=== PATIENT | female | born 1960 | race Caucasian/White ===

== ENCOUNTER 2018-01-17 23:27 | Inpatient (IN) ==
[2018-01-17] MEDS ORDERED: Sod Chloride 0.9% Inj 1,000 ML IV.SIG ONE (23:50)
[2018-01-17] MEDS ORDERED: Morphine Inj 4 MG/ML Vial IV.PUSH ONE (23:50)
[2018-01-18 00:36] LABS: Baso # (Auto) 0.1 th/mm3 (0.0-0.2); Baso % (Auto) 1.7 % (0.0-2.0); Eos # (Auto) 0.2 th/mm3 (0.0-0.4); Eos % (Auto) 3.6 % (0.0-4.0); Hematocrit 40.7 % (35.0-46.0); Lymph # (Auto) 2.2 th/mm3 (1.0-4.8); Lymph % (Auto) 35.4 % (9.0-44.0); Mean Corpuscular HGB Conc 34.5 % (32.0-36.0); Mean Corpuscular Volume 86.9 fL (80.0-100.0); Mean Platelet Volume 8.2 fL (7.0-11.0); Mono # (Auto) 0.5 th/mm3 (0.0-0.9); Mono % (Auto) 7.9 % (0.0-8.0); Neut # (Auto) 3.3 th/mm3 (1.8-7.7); Neut % (Auto) 51.4 % (16.0-70.0); Platelet Count 254 th/mm3 (150-450); Red Blood Count 4.68 mil/mm3 (4.00-5.30); Red Cell Distribution Width 13.1 % (11.6-17.2); White Blood Count 6.3 th/mm3 (4.0-11.0)
--- NOTE | 2018-01-18 00:48 | CT ---
EXAM DATE: 01/18/2018 12:30 AM EDT AGE/SEX: 57 years / Female INDICATIONS: Abdominal pain. Hematuria. CLINICAL DATA: This is the patient's initial encounter. Patient reports that signs and symptoms have been present for 1 day and indicates a pain score of 5/10. MEDICAL/SURGICAL HISTORY: . Kidney stones. section. Lithotripsy. RADIATION DOSE: 31.55 CTDI (mGy) COMPARISON: [facility], CT ABDOMEN & PELVIS W/O CONTRAST, 10/21/2016. . TECHNIQUE: Multiple contiguous axial images were obtained through the abdomen. Images were obtained using multiple row detector helical technique. Using automated exposure control and adjustment of the mA and/or kV according to patient size, radiation dose was kept as low as reasonably achievable to o btain optimal diagnostic quality images. DICOM format image data is available electronically for rev iew and comparison. FINDINGS: There are stones in the bilateral renal pelves that measures 17 x 24 x 19 mm on the right and 14 x 25 x 16 mm on the left. These are not new but there is now mild to moderate bilateral hydronephrosis. T here is also induration and edema around both renal pelves. Numerous scattered nonobstructing stones measuring up to 11 mm in size are seen of both kidneys as well. No ureteral stones are seen. The urin bony bladder is within normal limits. No change 3.9 cm benign-appearing cyst lower pole of the left ki dney. Liver measures 20 cm craniocaudal and is mild fatty infiltrated. Noncontrast appearance of the spleen , pancreas and adrenal glands within normal limits. No obstruction or acute inflammatory changes are seen of the gastrointestinal tract. Diverticulum of the gastric fundus again seen. No free fluid or free air. No lymphadenopathy. Numerous small stones again seen in the gallbladder. No duct stone or ductal dilatation. CONCLUSION: 1. Large bilateral renal pelvis stones causing mild to moderate obstruction and urothelial irritatio n. There are numerous scattered nonobstructing stones of both kidneys as well measuring up to 11 mm i n size. 2. Enlarged and fatty infiltrated liver. 3. Cholelithiasis without evidence of cholecystitis or biliary obstruction. 4. Stable diverticulum of the gastric fundus. Electronically signed by: Khalif Ordoñez MD 01/18/2018 12:47 AM EDT
[2018-01-18 01:10] LABS: Alkaline Phosphatase 68 U/L (45-117); Total Protein 6.7 g/dL (6.4-8.2)
[2018-01-18 01:15] LABS: Alanine Aminotransferase 30 U/L (10-53); Albumin 2.8 g/dL (3.4-5.0); Anion Gap 8 meq/L (5-15); Aspartate Aminotransferase 24 U/L (15-37); Blood Urea Nitrogen 19 mg/dL (7-18); Calcium 8.3 mg/dL (8.5-10.1); Carbon Dioxide 29.3 meq/L (21.0-32.0); Chloride 107 meq/L (98-107); Glomerular Filtration Rate 66 mL/min (>89); Glucose,Random 171 mg/dL (74-106); Lipase 601 U/L (73-393); Sodium 144 meq/L (136-145)
[2018-01-18 01:16] LABS: Potassium 3.7 meq/L (3.5-5.1)
[2018-01-18 01:22] LABS: Bacteria,Urine Rare /hpf; Bilirubin,Urine Negative (Negative); Clarity,Urine Cloudy (Clear); Glucose,Urine (UA) Negative (Negative); Hyaline Casts,Urine 9 /lpf (0-3); Leukocyte Esterase,Urine Moderate (Negative); Mucus,Urine Many /lpf (Occasional); Nitrite,Urine Positive (Negative); Specific Gravity,Urine 1.015 (1.002-1.035); Squamous Epithelial Cell,Urine 1 /hpf (0-5); Urobilinogen,Urine 4 or Greater mg/dL (Less than 2)
[2018-01-18 01:23] LABS: Color,Urine Orange (Yellw/Straw)
[2018-01-18] MEDS ORDERED: Labetalol HCl Inj 100 MG/20 ML Vial IV.PUSH ONE (02:50)
--- NOTE | 2018-01-18 02:54 | ED ---
HPI General Chief complaint: Abdominal Pain Stated complaint: Poss kidney stone Time Seen by Provider: 01/17/18 23:38 Source: patient Mode of arrival: ambulatory Limitations: no limitations History of Present Illness HPI narrative: Patient is a 57-year-old female who comes in complaining of right flank pain with dysuria and hematuria. She has been having issues with kidney stones for the past 2 years. She says that for the past couple of weeks , she has had increased pain, and dysuria. She has been taking ibuprofen to help with her symptoms. However, she says that this morning the pain became more severe and she had to come in. She has had some nausea, but no vomiting. She denies fever chills. Severity is mild to moderate. Related Data Allergies Allergy/AdvReac Type Severity Reaction Status Date / Time levofloxacin Allergy Intermediate Itching Unverified 01/03/17 13:13 meperidine Allergy Intermediate Nausea/Vomi Unverified 01/03/17 13:13 ting ETHER Allergy Severe Shortness Uncoded 07/31/15 13:21 of Breath Review of Systems ROS: all other systems reviewed are negative Constitutional Denies chills and Denies fever(s) ENT Denies dizziness Cardiovascular Denies chest pain Respiratory Denies cough and Denies dyspnea Gastrointestinal Reports abdominal pain, Reports nausea and Denies vomiting Genitourinary Reports dysuria and Reports flank pain Musculoskeletal Denies myalgias and Denies arthralgias Integumentary/Breasts Denies lesions and Denies rash Neurologic Denies focal weakness and Denies numbness PMFSH Medical History Medical History History of kidney stones (Acute) Hx of hysterectomy (Acute) Surgical History Surgical History Hx of abdominal surgery (Acute) Hx of section (Acute) Family History Family History Mother CAD (coronary artery disease) Brother Brain cancer Social History Social History Substance History: No History of Abuse Smoking Status: Never smoker How Often Do You Have a Drink Containing Alcohol: Monthly or less Recent Travel in [facility] within the Last 8 Weeks: No Recent Out of Country Travel within the Last 8 Weeks: No Immunization History Tetanus Immunization: <5 Years Hx Influenza Vaccine This Season: No Exam Narrative Exam Narrative: GENERAL: Awake and alert, no acute distress. SKIN: Focused skin assessment warm/dry. No wounds or signs of infection. HEAD: Atraumatic. Normocephalic. EYES: Pupils equal and round. No scleral icterus. ENT: Mucous membranes pink and moist. NECK: Trachea midline. No JVD. CARDIOVASCULAR: Regular rate and rhythm. No murmur appreciated. RESPIRATORY: No accessory muscle use. Clear to auscultation. Breath sounds equal bilaterally. GASTROINTESTINAL: Abdomen soft, nondistended. Right CVA tenderness. Tender to palpation the right side of the abdomen. No rebound or guarding. MUSCULOSKELETAL: No obvious deformities. No clubbing. No cyanosis. No edema. NEUROLOGICAL: Awake and alert. No obvious cranial nerve deficits. Motor grossly within normal limits. Normal speech. PSYCHIATRIC: Appropriate mood and affect; insight and judgment normal. Course Initial Documented Vital Signs Temperature 97.7 F 01/17/18 23:28 Pulse Rate 78 01/17/18 23:28 Respiratory Rate 18 01/17/18 23:28 Blood Pressure 229/122 H 01/17/18 23:28 Pulse Oximetry 97 01/17/18 23:28 Last Documented Vital Signs Temperature 97.7 F 01/17/18 23:28 Pulse Rate 70 01/18/18 04:07 Respiratory Rate 15 01/18/18 04:07 Blood Pressure 184/84 H 01/18/18 04:07 Pulse Oximetry 94 L 01/18/18 04:07 Medical Decision Making [facility] Narrative Medical decision making narrative: Patient is a 57-year-old female comes in complaining of flank pain with dysuria. Exam shows right CVA tenderness. IV established, labs sent. Urinalysis is positive for UTI. CT of the abdomen and pelvis is concerning for evidence of pyelonephritis with the renal stone present. Patient given IV fluids, pain medicine. Given a dose of Rocephin. Admitted for further management. Medical Screen Exam Complete: Yes Emergency Medical Condition: Yes Differential Diagnosis Differential Diagnosis: UTI versus pyelonephritis versus dehydration Medical Records Medical records reviewed: Yes I reviewed the patient's medical records. Lab Data Lab results reviewed: Yes I reviewed the patient's lab results. Result diagrams: 01/18/18 00:05 01/17/18 00:38 Lab Results 01/17/18 01/18/18 01/18/18 Range/Units 00:38 00:05 00:52 WBC 6.3 (4.0-11.0) th/mm3 RBC 4.68 (4.00-5.30) mil/mm3 Hgb 14.0 (11.6-15.3) gm/dL Hct 40.7 (35.0-46.0) % MCV 86.9 (80.0-100.0) fL MCH 30.0 (27.0-34.0) pg MCHC 34.5 (32.0-36.0) % RDW 13.1 (11.6-17.2) % Plt Count 254 (150-450) th/mm3 MPV 8.2 (7.0-11.0) fL Neut % (Auto) 51.4 (16.0-70.0) % Lymph % (Auto) 35.4 (9.0-44.0) % [place] % (Auto) 7.9 (0.0-8.0) % Eos % (Auto) 3.6 (0.0-4.0) % Baso % (Auto) 1.7 (0.0-2.0) % Neut # (Auto) 3.3 (1.8-7.7) th/mm3 Lymph # (Auto) 2.2 (1.0-4.8) th/mm3 [place] # (Auto) 0.5 (0.0-0.9) th/mm3 Eos # (Auto) 0.2 (0.0-0.4) th/mm3 Baso # (Auto) 0.1 (0.0-0.2) th/mm3 WBC Differential . Differential Comment Auto diff final Sodium 144 (136-145) meq/L Potassium 3.7 (3.5-5.1) meq/L Chloride 107 (98-107) meq/L Carbon Dioxide 29.3 (21.0-32.0) meq/L Anion Gap 8 (5-15) meq/L BUN 19 H (7-18) mg/dL Creatinine 0.89 (0.50-1.00) mg/dL Estimated GFR 66 L (>89) mL/min Random Glucose 171 H (74-106) mg/dL Calcium 8.3 L (8.5-10.1) mg/dL Total Bilirubin 0.2 (0.2-1.0) mg/dL AST 24 (15-37) U/L ALT 30 (10-53) U/L Alkaline Phosphatase 68 (45-117) U/L Total Protein 6.7 (6.4-8.2) g/dL Albumin 2.8 L (3.4-5.0) g/dL Lipase 601 H (73-393) U/L Urine Color [place] H (Yellw/Straw) Urine Clarity Cloudy H (Clear) Urine pH 6.0 (5.0-8.5) Ur Specific [place] 1.015 (1.002-1.035) Urine Protein 100 H (Neg-Trace) mg/dL Urine Glucose (UA) Negative (Negative) mg/dL Urine Ketones Negative (Negative) mg/dL Urine Occult Blood Large H (Negative) Urine Nitrate Positive H (Negative) Urine Bilirubin Negative (Negative) Urine Urobilinogen 4 or greater (Less than 2) mg/dL Ur Leukocyte Esterase Moderate H (Negative) Urine RBC (0-3) /hpf Urine WBC (0-5) /hpf Urine WBC Clumps Few H (None) Ur Squamous Epith Cells 1 (0-5) /hpf Urine Bacteria Rare H (None) /hpf Hyaline Casts 9 (0-3) /lpf Urine Mucus Many H (Occasional) /lpf Micro UA Comment Culture indicated Ur Microscopic Review Not Reportable Urine Culture Comments Culture indicated Imaging Data Radiologist's impression: Abdomen/Pelvis CT 01/17/18 23:50 CONCLUSION: 1. Large bilateral renal pelvis stones causing mild to moderate obstruction and urothelial irritation. There are numerous scattered nonobstructing stones of both kidneys as well measuring up to 11 mm in size. 2. Enlarged and fatty infiltrated liver. 3. Cholelithiasis without evidence of cholecystitis or biliary obstruction. 4. Stable diverticulum of the gastric fundus. Discharge Plan Discharge Disposition Patient Disposition: 30 Still Patient Discharge Condition Condition: Stable Discharge Details Diagnosis: UTI (urinary tract infection), Renal calculi, Acute pyelonephritis Physicians Team ED Provider: Theresa Berry Primary Care Provider: Lorna Vegas Attending Provider: Irineo Pitt Other Providers: Scaglia,Conley P Discharge Interventions Interventions: Vital Signs Last Done: 01/17/18 23:56 Status ED Status: Admitted Patient
[2018-01-18] MEDS ORDERED: Bisacodyl 10 MG Supp RECTAL PRN (03:07)
[2018-01-18] MEDS ORDERED: Sod Chloride 0.9% Inj 1,000 ML IV.CONT SCH (03:15)
--- NOTE | 2018-01-18 03:49 | P.HPIM ---
History of Present Illness Primary Care Physician: Lorna Vegas MD History of Present Illness: 57-year-old female with a history of uric acid kidney stones who presents with a one-week history of initially left-sided sharp constant pain which is now progressed to right-sided sharp constant pain. Reports subjective fevers as well. Denies any chest pain shortness of breath. She denies any dysuria. Inpatient Certification: I certify that the inpatient services were ordered in accordance with Medicare regulations governing the order. This includes certification that hospital inpatient services are reasonable and necessary and in the case of services not specified as inpatient-only under 42 CFR 419.22(n), that they are appropriately provided as inpatient services in accordance to with the 2-midnight benchmark under 43 CFR 412.3(e) Estimated Total Length of Stay (Days): 3 Plans for Post Hospital Care: Home Review of Systems All other systems reviewed negative except as stated in HPI PMFSH - History History Provided By: Patient - Medical History Medical History: Medical History (Last Updated 01/17/18 @ 23:32 by Kelby Lundberg) History of kidney stones Hx of hysterectomy - Surgical History Surgical History: Surgical History (Last Updated 01/17/18 @ 23:32 by Kelby Lundberg) Hx of abdominal surgery Hx of section - Family History Family History: Family History (Last Updated 01/18/18 @ 03:47 by Irineo Pitt MD) Mother CAD (coronary artery disease) Brother Brain cancer - Tobacco History Smoking Status: Never smoker - Alcohol History How Often Do You Have a Drink Containing Alcohol: Monthly or less - Substance Use History Substance History: No History of Abuse - Travel History Recent Travel in the [place] Within the Last 8 Weeks: No Recent Travel Out of the Country Within the Last 8 Weeks: No - Immunization History Tetanus Immunization: <5 Years Hx Influenza Vaccine This Season: No Medications and Allergies Active Medications: Active Medications Al Hydroxide/Mg Hydroxide (Milk Of Magnesia Liq) 30 ml PO Q12H PRN PRN Reason: Mild Constipation Bisacodyl (Dulcolax Supp) 10 mg RECTAL DAILY PRN PRN Reason: SEVERE CONSITIPATION Clonidine HCl (Catapres) 0.1 mg PO Q6H PRN PRN Reason: SBP>160, DBP>90 Ceftriaxone Sodium 1,000 mg/ (Sodium Chloride) 100 mls @ 200 mls/hr IV.SIG Q24H JING Sodium Chloride (Ns Inj) 1,000 mls @ 100 mls/hr IV.CONT .Q10H JING Lactulose (Lactulose Liq) 30 ml PO DAILY PRN PRN Reason: SEVERE CONSITIPATION Sennosides (Senokot) 17.2 mg PO Q12H PRN PRN Reason: Moderate Constipation Sodium Chloride (Ns Flush) 2 ml IV.FLUSH PRN PRN PRN Reason: FLUSH AFTER USING IV ACCESS Last Admin: 01/18/18 02:09 Dose: 2 ml Allergies Allergy/AdvReac Type Severity Reaction Status Date / Time levofloxacin Allergy Intermediate Itching Unverified 01/03/17 13:13 meperidine Allergy Intermediate Nausea/Vomi Unverified 01/03/17 13:13 ting ETHER Allergy Severe Shortness Uncoded 07/31/15 13:21 of Breath Exam Vital signs: Vital Signs 01/17/18 23:28 01/17/18 23:56 01/18/18 03:21 Temperature 97.7 F Pulse Rate 78 73 69 Respiratory Rate 18 15 17 Blood Pressure 229/122 H 221/95 H 204/93 H Pulse Oximetry 97 96 95 Intake & Output 01/17/18 01/17/18 01/18/18 06:59 18:59 06:59 Weight 108.862 kg Narrative: GENERAL: Patient sitting in bed. Appears comfortable. Alert and oriented 3. SKIN: Warm and dry. HEAD: Atraumatic. Normocephalic. EYES: Pupils equal and round. No scleral icterus. No injection or drainage. ENT: No nasal bleeding or discharge. Mucous membranes pink and moist. NECK: Trachea midline. No JVD. CARDIOVASCULAR: Regular rate and rhythm. RESPIRATORY: No accessory muscle use. Clear to auscultation. Breath sounds equal bilaterally. GASTROINTESTINAL: Abdomen soft, non-tender, nondistended. Hepatic and splenic margins not palpable. MUSCULOSKELETAL: Extremities without clubbing, cyanosis, or edema. No obvious deformities. CVA tenderness bilaterally. NEUROLOGICAL: Awake and alert. No obvious cranial nerve deficits. Motor grossly within normal limits. Five out of 5 muscle strength in the arms and legs. Normal speech. PSYCHIATRIC: Appropriate mood and affect; insight and judgment normal. Results - Labs CBC & Chem 7: 01/18/18 00:05 01/17/18 00:38 Labs: Short CBC 01/18/18 Range/Units 00:05 WBC 6.3 (4.0-11.0) th/mm3 Hgb 14.0 (11.6-15.3) gm/dL Hct 40.7 (35.0-46.0) % Plt Count 254 (150-450) th/mm3 BMP 01/17/18 00:38 Sodium 144 Potassium 3.7 Chloride 107 Carbon Dioxide 29.3 BUN 19 H Creatinine 0.89 Calcium 8.3 L Liver Function 01/17/18 Range/Units 00:38 Total Bilirubin 0.2 (0.2-1.0) mg/dL AST 24 (15-37) U/L ALT 30 (10-53) U/L Alkaline Phosphatase 68 (45-117) U/L Albumin 2.8 L (3.4-5.0) g/dL Urine 01/18/18 Range/Units 00:52 Urine Color [place] H (Yellw/Straw) Urine Clarity Cloudy H (Clear) Urine pH 6.0 (5.0-8.5) Ur Specific [place] 1.015 (1.002-1.035) Urine Protein 100 H (Neg-Trace) mg/dL Urine Glucose (UA) Negative (Negative) mg/dL - Imaging Impressions Abdomen/Pelvis CT 01/17/18 23:50 CONCLUSION: 1. Large bilateral renal pelvis stones causing mild to moderate obstruction and urothelial irritation. There are numerous scattered nonobstructing stones of both kidneys as well measuring up to 11 mm in size. 2. Enlarged and fatty infiltrated liver. 3. Cholelithiasis without evidence of cholecystitis or biliary obstruction. 4. Stable diverticulum of the gastric fundus. Caprini VTE Risk Assessment Caprini VTE Risk Assessment: No/Low Risk (score <= 1) Caprini Risk Assessment Model: Point Value = 1 Point Value = 2 Point Value = 3 Point Value = 5 Age 41-60 Minor surgery BMI > 25 kg/m2 Swollen legs Varicose veins or History of unexplained or recurrent spontaneous Oral contraceptives or hormone replacement Sepsis (< 1 month) Serious lung disease, including pneumonia (< 1 month) Abnormal pulmonary function Acute myocardial infarction Congestive heart failure (< 1 month) History of inflammatory bowel disease Medical patient at bed rest Age 61-74 Arthroscopic surgery Major open surgery (> 45 min) Laparoscopic surgery (> 45 min) Malignancy Confined to bed (> 72 hours) Immobilizing plaster cast Central venous access Age >= 75 History of VTE Family history of VTE Factor V Leiden Prothrombin [id number] Lupus anticoagulant Anticardiolipin antibodies Elevated serum homocysteine Heparin-induced thrombocytopenia Other congenital or acquired thrombophilia Stroke (< 1 month) Elective arthroplasty Hip, pelvis, or leg fracture Acute spinal cord injury (< 1 month) Prophylaxis Regimen: Total Risk Factor Score Risk Level Prophylaxis Regimen 0-1 Low Early ambulation 2 Moderate Order ONE of the following: *Sequential Compression Device (SCD) *Heparin 5000 units SQ BID 3-4 Higher Order ONE of the following medications: *Heparin 5000 units SQ TID *Enoxaparin/Lovenox 40 mg SQ daily (WT < 150 kg, CrCl > 30 mL/min) *Enoxaparin/Lovenox 30 mg SQ daily (WT < 150 kg, CrCl > 10-29 mL/min) *Enoxaparin/Lovenox 30 mg SQ BID (WT < 150 kg, CrCl > 30 mL/min) AND/OR *Sequential Compression Device (SCD) 5 or more Highest Order ONE of the following medications: *Heparin 5000 units SQ TID (Preferred with Epidurals) *Enoxaparin/Lovenox 40 mg SQ daily (WT < 150 kg, CrCl > 30 mL/min) *Enoxaparin/Lovenox 30 mg SQ daily (WT < 150 kg, CrCl > 10-29 mL/min) *Enoxaparin/Lovenox 30 mg SQ BID (WT < 150 kg, CrCl > 30 mL/min) AND *Sequential Compression Device (SCD) Assessment and Plan - Plan //Pyelonephritis //Bilateral nephrolithiasis causing moderate obstruction as seen on CT abdomen. //UTI Started on Rocephin Consult urology. //Axillary hypertension. Systolic blood pressures in the 220s. Will start on clonidine as needed and monitor. Fatty infiltration of liver. Loss. Follow with primary care as outpatient. Discussed Condition With: Patient, nurse, ED physician.
[2018-01-18] MEDS ORDERED: Morphine Inj 4 MG/ML Vial IV.PUSH PRN (06:24)
[2018-01-18 07:28] VITALS: RESP 16
[2018-01-18 11:23] VITALS: BP 130/63; PULSE 69; TEMP 97.6; O2SAT 96
--- NOTE | 2018-01-18 12:05 | P.PNIM ---
Subjective Interval history: 57-year-old female with a history of uric acid kidney stones who presents with a one-week history of initially left-sided sharp constant pain which is now progressed to right-sided sharp constant pain. Reports subjective fevers as well. Denies any chest pain shortness of breath. She denies any dysuria. 01-18 AWAIT UROLOGY EVALUATIONS LESS PAIN CATAPRES PRN FOR BLOOD PRESSURE DVT AND GI PROPHYLAXIS Physical Exam Vital signs: Vital Signs 01/17/18 23:28 01/17/18 23:56 01/18/18 03:21 Temperature 97.7 F Pulse Rate 78 73 69 Respiratory Rate 18 15 17 Blood Pressure 229/122 H 221/95 H 204/93 H Pulse Oximetry 97 96 95 01/18/18 03:51 01/18/18 04:07 01/18/18 05:11 Temperature Pulse Rate 68 70 68 Respiratory Rate 15 15 15 Blood Pressure 192/80 H 184/84 H 178/81 H Pulse Oximetry 94 L 94 L 94 L 01/18/18 07:27 01/18/18 11:22 Temperature 98.1 F 97.6 F Pulse Rate 70 69 Respiratory Rate 16 16 Blood Pressure 142/59 H 130/63 Pulse Oximetry 94 L 96 Intake & Output 01/17/18 01/18/18 01/18/18 18:59 06:59 18:59 Intake Total 1100 / 1100 Balance 1100 / 1100 Weight 108.862 kg Intake: IV 1100 / 1100 Rocephin Inj 1,000 MG In NS Inj 100 / 100 100 ML @ 200 mls/hr IV.SIG ONCE ONE Rx#:[id number] Other: # Voids 2 Weight On Admission 108.862 kg Narrative: GENERAL: Patient sitting in bed. Appears comfortable. Alert and oriented 3. SKIN: Warm and dry. HEAD: Atraumatic. Normocephalic. EYES: Pupils equal and round. No scleral icterus. No injection or drainage. ENT: No nasal bleeding or discharge. Mucous membranes pink and moist. NECK: Trachea midline. No JVD. CARDIOVASCULAR: Regular rate and rhythm. RESPIRATORY: No accessory muscle use. Clear to auscultation. Breath sounds equal bilaterally. GASTROINTESTINAL: Abdomen soft, non-tender, nondistended. Hepatic and splenic margins not palpable. MUSCULOSKELETAL: Extremities without clubbing, cyanosis, or edema. No obvious deformities. CVA tenderness bilaterally. NEUROLOGICAL: Awake and alert. No obvious cranial nerve deficits. Motor grossly within normal limits. Five out of 5 muscle strength in the arms and legs. Normal speech. PSYCHIATRIC: Appropriate mood and affect; insight and judgment normal. Results - Labs CBC & Chem 7: 01/18/18 00:05 01/17/18 00:38 Laboratory Results - last 24 hr 01/17/18 01/18/18 01/18/18 00:38 00:05 00:52 WBC 6.3 RBC 4.68 Hgb 14.0 Hct 40.7 MCV 86.9 MCH 30.0 MCHC 34.5 RDW 13.1 Plt Count 254 MPV 8.2 Neut % (Auto) 51.4 Lymph % (Auto) 35.4 [place] % (Auto) 7.9 Eos % (Auto) 3.6 Baso % (Auto) 1.7 Neut # (Auto) 3.3 Lymph # (Auto) 2.2 [place] # (Auto) 0.5 Eos # (Auto) 0.2 Baso # (Auto) 0.1 WBC Differential . Differential Comment Auto diff final Sodium 144 Potassium 3.7 Chloride 107 Carbon Dioxide 29.3 Anion Gap 8 BUN 19 H Creatinine 0.89 Estimated GFR 66 L Random Glucose 171 H Calcium 8.3 L Total Bilirubin 0.2 AST 24 ALT 30 Alkaline Phosphatase 68 Total Protein 6.7 Albumin 2.8 L Lipase 601 H Urine Color [place] H Urine Clarity Cloudy H Urine pH 6.0 Ur Specific [place] 1.015 Urine Protein 100 H Urine Glucose (UA) Negative Urine Ketones Negative Urine Occult Blood Large H Urine Nitrate Positive H Urine Bilirubin Negative Urine Urobilinogen 4 or greater Ur Leukocyte Esterase Moderate H Urine RBC Urine WBC Urine WBC Clumps Few H Ur Squamous Epith Cells 1 Urine Bacteria Rare H Hyaline Casts 9 Urine Mucus Many H Micro UA Comment Culture indicated Ur Microscopic Review Not Reportable Urine Culture Comments Culture indicated - Imaging Impressions Abdomen/Pelvis CT 01/17/18 23:50 CONCLUSION: 1. Large bilateral renal pelvis stones causing mild to moderate obstruction and urothelial irritation. There are numerous scattered nonobstructing stones of both kidneys as well measuring up to 11 mm in size. 2. Enlarged and fatty infiltrated liver. 3. Cholelithiasis without evidence of cholecystitis or biliary obstruction. 4. Stable diverticulum of the gastric fundus. Assessment and Plan - Plan Pyelonephritis Bilateral nephrolithiasis causing moderate obstruction as seen on CT abdomen. UTI Started on Rocephin Consult urology. UNCONTROLLED hypertension. Systolic blood pressures in the 220s. Will start on clonidine as needed and monitor. Fatty infiltration of liver. Loss. Follow with primary care as outpatient. GI AND DVT PROPHYLAXIS Code Status: FULL CODE Discussed Condition With: RN AND PT AND CM Discharge Planning: PENDING UROLOGY CLEARANCE
[2018-01-18] MEDS ORDERED: Famotidine 20 MG Tablet PO SCH (12:15)
--- NOTE | 2018-01-18 12:59 | P.CONURO ---
History of Present Illness Service: Consult date: 01/18/18 Requesting Physician: Irineo Pitt Reason for Consult: Bilateral nephrolithiasis Primary Care Provider: Lorna Vegas MD Family Provider: Lorna Vegas MD History of Present Illness: 57-year-old female with long-standing history recurrent renal calculi who last underwent a urologic evaluation approximately 1 year ago by who had recommended management with a percutaneous nephrolithotomy. Patient reports that she did not have insurance and cannot afford to have the procedure performed and has just been living with her problem for the past year. She presents now with intermittent bilateral flank pain that has gradually become worse. She also reports that her kidney stones have always been uric acid in nature. I discussed that I would order a KUB study to ascertain whether the stones are consistent with uric acid and if so would recommend medical management with Urocit-K 10 mEq by mouth 4 times daily. Review of Systems All other systems reviewed negative except as stated in HPI PMFSH - History History Provided By: Patient - Medical History Medical History: Medical History (Last Reviewed 01/18/18 @ 06:08 by Ana Foss RN) History of kidney stones Hx of hysterectomy - Surgical History Surgical History: Surgical History (Last Reviewed 01/18/18 @ 06:08 by Ana Foss RN) Hx of abdominal surgery Hx of section - Family History Family History: Family History (Last Reviewed 01/18/18 @ 05:08 by Theresa Berry MD) Mother CAD (coronary artery disease) Brother Brain cancer - Tobacco History Second Hand Smoke Exposure: No Smoking Status: Never smoker - Alcohol History How Often Do You Have a Drink Containing Alcohol: Never - Substance Use History Substance History: No History of Abuse - Travel History Recent Travel in the [place] Within the Last 8 Weeks: No Recent Travel Out of the Country Within the Last 8 Weeks: No - Immunization History Tetanus Immunization: <5 Years Hx Influenza Vaccine This Season: No Medications and Allergies Active Medications: Active Medications Al Hydroxide/Mg Hydroxide (Milk Of Magnandriy Liq) 30 ml PO Q12H PRN PRN Reason: Mild Constipation Bisacodyl (Dulcolax Supp) 10 mg RECTAL DAILY PRN PRN Reason: SEVERE CONSITIPATION Clonidine HCl (Catapres) 0.1 mg PO Q6H PRN PRN Reason: SBP>160, DBP>90 Last Admin: 01/18/18 04:07 Dose: 0.1 mg Famotidine (Pepcid) 10 mg PO BID JING Ceftriaxone Sodium 1,000 mg/ (Sodium Chloride) 100 mls @ 200 mls/hr IV.SIG Q24H JING Sodium Chloride (Ns Inj) 1,000 mls @ 100 mls/hr IV.CONT .Q10H JING Last Admin: 01/18/18 06:00 Dose: 100 mls/hr Lactulose (Lactulose Liq) 30 ml PO DAILY PRN PRN Reason: SEVERE CONSITIPATION Morphine Sulfate (Morphine Inj) 2 mg IV.PUSH Q3H PRN PRN Reason: PAIN SCALE 1 TO 10 Last Admin: 01/18/18 06:42 Dose: 2 mg Ondansetron HCl (Zofran Inj) 4 mg IV.PUSH Q6H PRN PRN Reason: NAUSEA, VOMITING Last Admin: 01/18/18 11:31 Dose: 4 mg Sennosides (Senokot) 17.2 mg PO Q12H PRN PRN Reason: Moderate Constipation Sodium Chloride (Ns Flush) 2 ml IV.FLUSH PRN PRN PRN Reason: FLUSH AFTER USING IV ACCESS Last Admin: 01/18/18 02:09 Dose: 2 ml Allergies Allergy/AdvReac Type Severity Reaction Status Date / Time levofloxacin Allergy Intermediate Itching Verified 01/18/18 06:07 meperidine Allergy Intermediate Nausea/Vomi Verified 01/18/18 06:07 ting ETHER Allergy Severe Shortness Uncoded 01/18/18 06:07 of Breath Home Medications Medication Instructions Recorded Confirmed Type No Known Home Medications 01/18/18 01/18/18 History Physical Exam Vital Signs - 24 hr 01/17/18 23:28 01/17/18 23:56 01/18/18 03:21 Temperature 97.7 F Pulse Rate 78 73 69 Respiratory Rate 18 15 17 Blood Pressure 229/122 H 221/95 H 204/93 H Pulse Oximetry 97 96 95 01/18/18 03:51 01/18/18 04:07 01/18/18 05:11 Temperature Pulse Rate 68 70 68 Respiratory Rate 15 15 15 Blood Pressure 192/80 H 184/84 H 178/81 H Pulse Oximetry 94 L 94 L 94 L 01/18/18 07:27 01/18/18 11:22 Temperature 98.1 F 97.6 F Pulse Rate 70 69 Respiratory Rate 16 16 Blood Pressure 142/59 H 130/63 Pulse Oximetry 94 L 96 Physical Exam: GENERAL: This is a well-nourished, well-developed patient, in no apparent distress. SKIN: No rashes, ecchymoses or lesions. Cool and dry. HEAD: Atraumatic. Normocephalic. No temporal or scalp tenderness. EYES: Pupils equal round and reactive. Extraocular motions intact. No scleral icterus. No injection or drainage. ENT: Nose without bleeding, purulent drainage or septal hematoma. Throat without erythema, tonsillar hypertrophy or exudate. Uvula midline. Airway patent. NECK: Trachea midline. No JVD or lymphadenopathy. Supple, nontender, no meningeal signs. CARDIOVASCULAR: Regular rate and rhythm without murmurs, gallops, or rubs. RESPIRATORY: Clear to auscultation. Breath sounds equal bilaterally. No wheezes , rales, or rhonchi. GASTROINTESTINAL: Abdomen soft, non-tender, nondistended. No hepato-splenomegaly , or palpable masses. No guarding. GENITOURINARY: No CVA tenderness, bladder not distended MUSCULOSKELETAL: Extremities without clubbing, cyanosis, or edema. No joint tenderness, effusion, or edema noted. No calf tenderness. Negative Homans sign bilaterally. NEUROLOGICAL: Awake and alert. Cranial nerves II through XII intact. Motor and sensory grossly within normal limits. Five out of 5 muscle strength in all muscle groups. Normal speech. Laboratory Results - last 24 hr 01/17/18 01/18/18 01/18/18 00:38 00:05 00:38 WBC 6.3 RBC 4.68 Hgb 14.0 Hct 40.7 MCV 86.9 MCH 30.0 MCHC 34.5 RDW 13.1 Plt Count 254 MPV 8.2 Neut % (Auto) 51.4 Lymph % (Auto) 35.4 [place] % (Auto) 7.9 Eos % (Auto) 3.6 Baso % (Auto) 1.7 Neut # (Auto) 3.3 Lymph # (Auto) 2.2 [place] # (Auto) 0.5 Eos # (Auto) 0.2 Baso # (Auto) 0.1 WBC Differential . Differential Comment Auto diff final Sodium 144 Potassium 3.7 Chloride 107 Carbon Dioxide 29.3 Anion Gap 8 BUN 19 H Creatinine 0.89 Estimated GFR 66 L Random Glucose 171 H Calcium 8.3 L Total Bilirubin 0.2 AST 24 ALT 30 Alkaline Phosphatase 68 Total Protein 6.7 Albumin 2.8 L Lipase 601 H Free T4 1.07 Urine Color Urine Clarity Urine pH Ur Specific [place] Urine Protein Urine Glucose (UA) Urine Ketones Urine Occult Blood Urine Nitrate Urine Bilirubin Urine Urobilinogen Ur Leukocyte Esterase Urine RBC Urine WBC Urine WBC Clumps Ur Squamous Epith Cells Urine Bacteria Hyaline Casts Urine Mucus Micro UA Comment Ur Microscopic Review Urine Culture Comments 01/18/18 00:52 WBC RBC Hgb Hct MCV MCH MCHC RDW Plt Count MPV Neut % (Auto) Lymph % (Auto) [place] % (Auto) Eos % (Auto) Baso % (Auto) Neut # (Auto) Lymph # (Auto) [place] # (Auto) Eos # (Auto) Baso # (Auto) WBC Differential Differential Comment Sodium Potassium Chloride Carbon Dioxide Anion Gap BUN Creatinine Estimated GFR Random Glucose Calcium Total Bilirubin AST ALT Alkaline Phosphatase Total Protein Albumin Lipase Free T4 Urine Color [place] H Urine Clarity Cloudy H Urine pH 6.0 Ur Specific [place] 1.015 Urine Protein 100 H Urine Glucose (UA) Negative Urine Ketones Negative Urine Occult Blood Large H Urine Nitrate Positive H Urine Bilirubin Negative Urine Urobilinogen 4 or greater Ur Leukocyte Esterase Moderate H Urine RBC Urine WBC Urine WBC Clumps Few H Ur Squamous Epith Cells 1 Urine Bacteria Rare H Hyaline Casts 9 Urine Mucus Many H Micro UA Comment Culture indicated Ur Microscopic Review Not Reportable Urine Culture Comments Culture indicated Result Diagrams: 01/18/18 00:05 01/17/18 00:38 Imaging: ITS Impressions Abdomen/Pelvis CT 01/17/18 23:50 CONCLUSION: 1. Large bilateral renal pelvis stones causing mild to moderate obstruction and urothelial irritation. There are numerous scattered nonobstructing stones of both kidneys as well measuring up to 11 mm in size. 2. Enlarged and fatty infiltrated liver. 3. Cholelithiasis without evidence of cholecystitis or biliary obstruction. 4. Stable diverticulum of the gastric fundus. Assessment and Plan - Assessment (1) Renal calculi Code(s): N20.0 - Calculus of kidney Status: Acute - Plan Urologic impression: 1. Bilateral renal calculi possibly uric acid in nature 2. Urinary tract infection Recommendations: 1. KUB study today to assess if stones are likely uric acid in nature 2. Agree with antibiotic therapy 3. May discharge home when clinically stable with instructions to follow-up at my office for further management. 4. Implement medical management with Urocit-K 10 mEq by mouth 4 times daily
--- NOTE | 2018-01-18 14:32 | XR ---
EXAM DATE: 01/18/2018 2:21 PM EDT AGE/SEX: 57 years / Female INDICATIONS: Kidney stones. CLINICAL DATA: This is the patient's subsequent encounter. Patient reports that signs and symptoms h ave been present for 1 week and indicates a pain score of 2/10. MEDICAL/SURGICAL HISTORY: Renal calculi. Lithotripsy. ureteral stents COMPARISON: [facility] – [place], CT ABDOMEN & PELVIS W/O CONTRAST, 01/18/2018. . FINDINGS: The abdominal bowel gas pattern is normal. There are large bilateral staghorn calculi present. There is a staghorn calculus in the right renal pelvis measuring 2.6 x 2.4 cm. There is a staghorn calculu s in the left renal pelvis measuring 2.8 x 1.7 cm. Several smaller bilateral calculi are seen in both kidneys. This correlates with the recent CT scan. No definite calcifications are seen in the ureters . CONCLUSION: Bilateral prominent staghorn calculi are noted in both kidneys. Electronically signed by: Jacob Farmer MD 01/18/2018 2:31 PM EDT
[2018-01-18 15:36] LABS: Hemoglobin A1c 6.7 % (4.3-6.0)
--- NOTE | 2018-01-18 15:38 | P.DS ---
Date of admission: 01/18/18 02:53 Primary care physician: Lorna Vegas MD Attending physician on discharge: Isaiah Israel Anticipated date of discharge: 01/18/18 Brief History from admission: 57-year-old female with a history of uric acid kidney stones who presents with a one-week history of initially left-sided sharp constant pain which is now progressed to right-sided sharp constant pain. Reports subjective fevers as well. Denies any chest pain shortness of breath. She denies any dysuria. DS: Diagnosis - Discharge Diagnosis (1) Staghorn calculus Status: Chronic (2) UTI (urinary tract infection) Status: Acute (3) Renal calculi Status: Chronic (4) Acute pyelonephritis Status: Acute DS: Medications - Discharge Medications Prescriptions: cefuroxime axetil 500 mg PO Q12HR #28 tab hydrocodone-acetaminophen [[place]] 1 tab PO Q6H PRN #12 tab PRN Reason: Pain potassium citrate [Urocit-K 10] 10 meq PO QID #120 tab sennosides [Senna Lax] 17.2 mg PO Q12H PRN #120 tab PRN Reason: Moderate Constipation DS: Summary Hospital Course: 57-year-old female with a history of uric acid kidney stones who presents with a one-week history of initially left-sided sharp constant pain which is now progressed to right-sided sharp constant pain. Reports subjective fevers as well. Denies any chest pain shortness of breath. She denies any dysuria. 8-30 AWAIT UROLOGY EVALUATIONS LESS PAIN CATAPRES PRN FOR BLOOD PRESSURE DVT AND GI PROPHYLAXIS PATIENT CLEARED BY UROLOGY WANTS TO GO HOME WILL GIVE RX FOR ANTIBIOTICS AND Urocit-K 10MEQ QID FOLLOW UP WITH UROLOGY DC TO HOME TODAY E-FORCSE Prescription Drug Monitoring Database has been queried and verified prior to prescribing the controlled substance. Acute pain exception. This patient has normal, predicted, physiological, and time limited response to an adverse mechanical stimulus associated with surgery, trauma, or acute illness as described in my notes. There is a lack of alternative treatment options other than to include the prescribed narcotic treatment for this condition. continue on [place] FOR PAIN 5-325 #12 E-FORCSE CHECKED NO RX IN SYSTEM - Time Spent with Patient Total time spent providing and/or coordinating discharge services: Greater than 30 minutes - Quality: VTE Deep Vein Thrombosis/Pulmonary Embolism Present on Admission: No Exam Vital signs: Vital Signs 01/17/18 23:28 01/17/18 23:56 01/18/18 03:21 Temperature 97.7 F Pulse Rate 78 73 69 Respiratory Rate 18 15 17 Blood Pressure 229/122 H 221/95 H 204/93 H Pulse Oximetry 97 96 95 01/18/18 03:51 01/18/18 04:07 01/18/18 05:11 Temperature Pulse Rate 68 70 68 Respiratory Rate 15 15 15 Blood Pressure 192/80 H 184/84 H 178/81 H Pulse Oximetry 94 L 94 L 94 L 01/18/18 07:27 01/18/18 11:22 Temperature 98.1 F 97.6 F Pulse Rate 70 69 Respiratory Rate 16 16 Blood Pressure 142/59 H 130/63 Pulse Oximetry 94 L 96 Intake & Output 01/17/18 01/18/18 01/18/18 18:59 06:59 18:59 Intake Total 1100 / 1100 Balance 1100 / 1100 Weight 108.862 kg Intake: IV 1100 / 1100 Rocephin Inj 1,000 MG In NS Inj 100 / 100 100 ML @ 200 mls/hr IV.SIG ONCE ONE Rx#:[id number] Other: # Voids 2 Weight On Admission 108.862 kg Narrative: GENERAL: Patient sitting in bed. Appears comfortable. Alert and oriented 3. SKIN: Warm and dry. HEAD: Atraumatic. Normocephalic. EYES: Pupils equal and round. No scleral icterus. No injection or drainage. ENT: No nasal bleeding or discharge. Mucous membranes pink and moist. NECK: Trachea midline. No JVD. CARDIOVASCULAR: Regular rate and rhythm. RESPIRATORY: No accessory muscle use. Clear to auscultation. Breath sounds equal bilaterally. GASTROINTESTINAL: Abdomen soft, non-tender, nondistended. Hepatic and splenic margins not palpable. MUSCULOSKELETAL: Extremities without clubbing, cyanosis, or edema. No obvious deformities. CVA tenderness bilaterally. NEUROLOGICAL: Awake and alert. No obvious cranial nerve deficits. Motor grossly within normal limits. Five out of 5 muscle strength in the arms and legs. Normal speech. PSYCHIATRIC: Appropriate mood and affect; insight and judgment normal. Results Procedures completed during hospitalization: none Completed studies during hospitalization: Laboratory Results WBC 6.3 th/mm3 (4.0-11.0) 01/18/18 00:05 RBC 4.68 mil/mm3 (4.00-5.30) 01/18/18 00:05 Hgb 14.0 gm/dL (11.6-15.3) 01/18/18 00:05 Hct 40.7 % (35.0-46.0) 01/18/18 00:05 MCV 86.9 fL (80.0-100.0) 01/18/18 00:05 MCH 30.0 pg (27.0-34.0) 01/18/18 00:05 MCHC 34.5 % (32.0-36.0) 01/18/18 00:05 RDW 13.1 % (11.6-17.2) 01/18/18 00:05 Plt Count 254 th/mm3 (150-450) 01/18/18 00:05 MPV 8.2 fL (7.0-11.0) 01/18/18 00:05 Neut % (Auto) 51.4 % (16.0-70.0) 01/18/18 00:05 Lymph % (Auto) 35.4 % (9.0-44.0) 01/18/18 00:05 [place] % (Auto) 7.9 % (0.0-8.0) 01/18/18 00:05 Eos % (Auto) 3.6 % (0.0-4.0) 01/18/18 00:05 Baso % (Auto) 1.7 % (0.0-2.0) 01/18/18 00:05 Neut # (Auto) 3.3 th/mm3 (1.8-7.7) 01/18/18 00:05 Lymph # (Auto) 2.2 th/mm3 (1.0-4.8) 01/18/18 00:05 [place] # (Auto) 0.5 th/mm3 (0.0-0.9) 01/18/18 00:05 Eos # (Auto) 0.2 th/mm3 (0.0-0.4) 01/18/18 00:05 Baso # (Auto) 0.1 th/mm3 (0.0-0.2) 01/18/18 00:05 WBC Differential . 01/18/18 00:05 Differential Comment Auto diff final 01/18/18 00:05 Sodium 144 meq/L (136-145) 01/17/18 00:38 Potassium 3.7 meq/L (3.5-5.1) 01/17/18 00:38 Chloride 107 meq/L (98-107) 01/17/18 00:38 Carbon Dioxide 29.3 meq/L (21.0-32.0) 01/17/18 00:38 Anion Gap 8 meq/L (5-15) 01/17/18 00:38 BUN 19 mg/dL (7-18) H 01/17/18 00:38 Creatinine 0.89 mg/dL (0.50-1.00) 01/17/18 00:38 Estimated GFR 66 mL/min (>89) L 01/17/18 00:38 Random Glucose 171 mg/dL (74-106) H 01/17/18 00:38 Calcium 8.3 mg/dL (8.5-10.1) L 01/17/18 00:38 Total Bilirubin 0.2 mg/dL (0.2-1.0) 01/17/18 00:38 AST 24 U/L (15-37) 01/17/18 00:38 ALT 30 U/L (10-53) 01/17/18 00:38 Alkaline Phosphatase 68 U/L (45-117) 01/17/18 00:38 Total Protein 6.7 g/dL (6.4-8.2) 01/17/18 00:38 Albumin 2.8 g/dL (3.4-5.0) L 01/17/18 00:38 Lipase 601 U/L (73-393) H 01/17/18 00:38 TSH 2.720 uIU/mL (0.358-3.740) 01/18/18 00:38 Free T4 1.07 ng/dL (0.76-1.46) 01/18/18 00:38 Urine Color [place] (Yellw/Straw) H 01/18/18 00:52 Urine Clarity Cloudy (Clear) H 01/18/18 00:52 Urine pH 6.0 (5.0-8.5) 01/18/18 00:52 Ur Specific [place] 1.015 (1.002-1.035) 01/18/18 00:52 Urine Protein 100 mg/dL (Neg-Trace) H 01/18/18 00:52 Urine Glucose (UA) Negative mg/dL (Negative) 01/18/18 00:52 Urine Ketones Negative mg/dL (Negative) 01/18/18 00:52 Urine Occult Blood Large (Negative) H 01/18/18 00:52 Urine Nitrate Positive (Negative) H 01/18/18 00:52 Urine Bilirubin Negative (Negative) 01/18/18 00:52 Urine Urobilinogen 4 or greater mg/dL (Less than 2) 01/18/18 00:52 Ur Leukocyte Esterase Moderate (Negative) H 01/18/18 00:52 Urine RBC /hpf (0-3) 01/18/18 00:52 Urine WBC /hpf (0-5) 01/18/18 00:52 Urine WBC Clumps Few (None) H 01/18/18 00:52 Ur Squamous Epith Cells 1 /hpf (0-5) 01/18/18 00:52 Urine Bacteria Rare /hpf (None) H 01/18/18 00:52 Hyaline Casts 9 /lpf (0-3) 01/18/18 00:52 Urine Mucus Many /lpf (Occasional) H 01/18/18 00:52 Micro UA Comment Culture indicated 01/18/18 00:52 Ur Microscopic Review Not Reportable 01/18/18 00:52 Urine Culture Comments Culture indicated 01/18/18 00:52 Impressions Abdomen/Pelvis CT 01/17/18 23:50 CONCLUSION: 1. Large bilateral renal pelvis stones causing mild to moderate obstruction and urothelial irritation. There are numerous scattered nonobstructing stones of both kidneys as well measuring up to 11 mm in size. 2. Enlarged and fatty infiltrated liver. 3. Cholelithiasis without evidence of cholecystitis or biliary obstruction. 4. Stable diverticulum of the gastric fundus. Abdomen X-Ray 01/18/18 00:00 CONCLUSION: Bilateral prominent staghorn calculi are noted in both kidneys. Labs on day of discharge: Labs from last 24 hours 01/18/18 01/18/18 01/18/18 00:52 00:38 00:38 WBC RBC Hgb Hct MCV MCH MCHC RDW Plt Count MPV Neut % (Auto) Lymph % (Auto) [place] % (Auto) Eos % (Auto) Baso % (Auto) Neut # (Auto) Lymph # (Auto) [place] # (Auto) Eos # (Auto) Baso # (Auto) WBC Differential Differential Comment Sodium Potassium Chloride Carbon Dioxide Anion Gap BUN Creatinine Estimated GFR Random Glucose Hemoglobin A1c Calcium Total Bilirubin AST ALT Alkaline Phosphatase Total Protein Albumin Lipase TSH 2.720 Free T4 1.07 Urine Color [place] H Urine Clarity Cloudy H Urine pH 6.0 Ur Specific [place] 1.015 Urine Protein 100 H Urine Glucose (UA) Negative Urine Ketones Negative Urine Occult Blood Large H Urine Nitrate Positive H Urine Bilirubin Negative Urine Urobilinogen 4 or greater Ur Leukocyte Esterase Moderate H Urine RBC Urine WBC Urine WBC Clumps Few H Ur Squamous Epith Cells 1 Urine Bacteria Rare H Hyaline Casts 9 Urine Mucus Many H Micro UA Comment Culture indicated Ur Microscopic Review Not Reportable Urine Culture Comments Culture indicated 01/18/18 01/18/18 01/17/18 00:38 00:05 00:38 WBC 6.3 RBC 4.68 Hgb 14.0 Hct 40.7 MCV 86.9 MCH 30.0 MCHC 34.5 RDW 13.1 Plt Count 254 MPV 8.2 Neut % (Auto) 51.4 Lymph % (Auto) 35.4 [place] % (Auto) 7.9 Eos % (Auto) 3.6 Baso % (Auto) 1.7 Neut # (Auto) 3.3 Lymph # (Auto) 2.2 [place] # (Auto) 0.5 Eos # (Auto) 0.2 Baso # (Auto) 0.1 WBC Differential . Differential Comment Auto diff final Sodium 144 Potassium 3.7 Chloride 107 Carbon Dioxide 29.3 Anion Gap 8 BUN 19 H Creatinine 0.89 Estimated GFR 66 L Random Glucose 171 H Hemoglobin A1c Pending Calcium 8.3 L Total Bilirubin 0.2 AST 24 ALT 30 Alkaline Phosphatase 68 Total Protein 6.7 Albumin 2.8 L Lipase 601 H TSH Free T4 Urine Color Urine Clarity Urine pH Ur Specific [place] Urine Protein Urine Glucose (UA) Urine Ketones Urine Occult Blood Urine Nitrate Urine Bilirubin Urine Urobilinogen Ur Leukocyte Esterase Urine RBC Urine WBC Urine WBC Clumps Ur Squamous Epith Cells Urine Bacteria Hyaline Casts Urine Mucus Micro UA Comment Ur Microscopic Review Urine Culture Comments - Impressions ITS Impressions Abdomen/Pelvis CT 01/17/18 23:50 CONCLUSION: 1. Large bilateral renal pelvis stones causing mild to moderate obstruction and urothelial irritation. There are numerous scattered nonobstructing stones of both kidneys as well measuring up to 11 mm in size. 2. Enlarged and fatty infiltrated liver. 3. Cholelithiasis without evidence of cholecystitis or biliary obstruction. 4. Stable diverticulum of the gastric fundus. Abdomen X-Ray 01/18/18 00:00 CONCLUSION: Bilateral prominent staghorn calculi are noted in both kidneys. Discharge Plan - Discharge Disposition Patient Disposition: Discharge Home - Discharge Condition Condition: Stable - Discharge Order Discharge Orders: Discharge Order (Routine); Ordered 01/18/18 Ordered By: Isaiah Israel - Physicians Team Primary Care Provider: Lorna Vegas Attending Provider: Isaiah Israel Other Providers: Jarvis Brito MD
[2018-01-18] MEDS ORDERED: POTASSIUM CITRATE PO SCH (18:00)
== END 2018-01-18 15:43 | disposition home or self-care (01) ==
LOC: NEPC 23:27 → NEDA 01-18 02:53 → NEPGCP 01-18 05:47
PROVIDERS: ADMIT Hospitalist; ATTEND Hospitalist